=== PATIENT | male | born 2000 | race Caucasian/White ===

== ENCOUNTER 2018-06-18 20:43 | Emergency (ER) | payer BC ==
[~2018-06-18] VITALS: Ht 175.3 cm; Wt 83.2 kg
[~2018-06-18 20:43] MED LIST: [UNRECOGNIZED DRUG - OTHER]; advil prn
[2018-06-18 20:48] VITALS: BP 138/70
[2018-06-18] MEDS ORDERED: dexamethasone sod phosphate 10mg/ml inj IM STA (21:09)
[2018-06-18] MEDS ORDERED: diphenhydrAMINE 25mg capsule PO ONE (21:10)
[2018-06-18] MEDS ORDERED: cephalexin 250mg capsule PO ONE (21:10)
[2018-06-18] MEDS ORDERED: CEPH500C5 PO (21:11)
[2018-06-18] MEDS ORDERED: EPIN0.3P8 IM (21:11)
== END 2018-06-18 21:29 | disposition home or self-care (01) ==
LOC: ER 20:43
DX: T63.441A Toxic effect of venom of bees, accidental (unintentional), initial encounter (principal); L03.114 Cellulitis of left upper limb; Y92.89 Other specified places as the place of occurrence of the external cause; Z79.2 Long term (current) use of antibiotics; Z79.899 Other long term (current) drug therapy
CPT/HCPCS: 96372; 99283; J1100; Q0163